=== PATIENT | male | born 1935 | race Caucasian/White ===

== ENCOUNTER 2019-08-15 16:39 | Inpatient (IN) | payer OTHER ==
[~2019-08-15] VITALS: Ht 172.7 cm; Wt 95.5 kg
[~2019-08-15 16:39] MED LIST: ALEVE220 M1 PO; ASPIRIN81 M2 PO; ATORVASTATIN CA40 MG PO; CARVEDILOL12.5 MG PO; FISH OIL300 MG PO; MSM1000 MG PO; MULTIVITAMINS1 EAC7 PO; POTABA500 M1 PO
[2019-08-15 16:40] VITALS: BP 143/76
[2019-08-15 17:04] LABS: ABSOLUTE NEUTROPHILS 4.3 thou/uL (1.4-8.2); BASOPHILS 0.9 % (0.0-2.0); EOSINOPHILS 4.4 % (0.0-3.0); HEMATOCRIT 37.8 % (42.0-52.0); HEMOGLOBIN 12.9 gm/dL (14.0-18.0); LYMPHOCYTES 29.1 % (24.0-44.0); MCH 33.2 pg (26.0-34.0); MCHC 34.1 g/dL (28.0-37.0); MCV 97.6 fL (80.0-100.0); MONOCYTES 6.8 % (1.0-8.0); PLATELET COUNT 194 thou/uL (150-400); POLYS 58.8 % (36.0-66.0); RBC 3.87 mil/uL (4.50-6.00); RDW 13.7 % (10.5-14.5); WBC 7.4 thou/uL (4.0-11.0)
[2019-08-15 17:07] LABS: CALCIUM 8.3 mg/dL (8.5-10.1); POTASSIUM 4.2 mmol/L (3.5-5.1)
[2019-08-15 17:17] LABS: ALBUMIN 2.8 g/dL (3.4-5.0); TOTAL BILIRUBIN 0.3 mg/dL (0.2-1.0); TOTAL PROTEIN 6.7 g/dL (6.4-8.2)
--- NOTE | 2019-08-15 17:20 | NUR ---
UNABLE TO INSERT CATHETER DO TO URETHRA OPENING VERY SMALL. ATTEMPTED WITH SMALLEST FEMALE STRAIGHT CATH WHICH WAS SUCCESSFULLY INSERTED BUT NOT LONG ENOUGH TO OBTAIN URINE RETURN.
[2019-08-15 23:29] VITALS: BP 178/85
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
[2019-08-16 06:28] LABS: ABSOLUTE NEUTROPHILS 4.9 thou/uL (1.4-8.2); BASOPHILS 0.5 % (0.0-2.0); HEMATOCRIT 38.2 % (42.0-52.0); HEMOGLOBIN 12.8 gm/dL (14.0-18.0); LYMPHOCYTES 26.5 % (24.0-44.0); MCH 32.9 pg (26.0-34.0); MCHC 33.5 g/dL (28.0-37.0); MCV 98.1 fL (80.0-100.0); MONOCYTES 7.1 % (1.0-8.0); PLATELET COUNT 174 thou/uL (150-400); POLYS 61.9 % (36.0-66.0); RDW 13.4 % (10.5-14.5)
[2019-08-16 06:48] LABS: ALBUMIN 2.8 g/dL (3.4-5.0); CALCIUM 8.4 mg/dL (8.5-10.1); CREATININE 0.9 mg/dL (0.7-1.3); POTASSIUM 3.4 mmol/L (3.5-5.1); TOTAL BILIRUBIN 0.4 mg/dL (0.2-1.0); TOTAL PROTEIN 6.5 g/dL (6.4-8.2)
[2019-08-16 07:30] VITALS: BP 157/91
--- NOTE | 2019-08-16 07:32 | EKG ---
[facility] [place] [address] ELECTROCARDIOGRAM REPORT Name: FANTA TERRELL Room #: [facility] ADM IN M.R.#: [id number] Admission: 08/15/19 Attend Phys: Kevin Aparicio DO Discharge: Date of : 33 Report #: [id number] THIS REPORT FOR: cc: Dread Hoyos MD, Dennis R MD Lundgren,Caesar Pérez MD [facility] ~ THIS REPORT FOR: //name// [facility] ED Test Date: 2019-08-15 Test Time: 17:01:42 Pat Name: FANTA TERRELL Department: Room: [facility] Gender: M Shop Estimator: BAM : 1935 Requested By: Sushant Randolph Order Number: [id number] MD: Caesar Gonzalez Measurements Intervals [place] Rate: 74 P: -9 VT: 209 QRS: -90 QRSD: 139 T: 30 QT: 426 QTc: 473 Interpretive Statements Sinus rhythm Ventricular premature complex RBBB and LAFB No previous ECG available for comparison Electronically Signed On 08-16-2019 7:31:34 CDT by Caesar Gonzalez [email or web address] <ELECTRONICALLY SIGNED> By: Caesar Gonzalez MD, FAC 08/16/19 0731 1701 170 Caesar Gonzalez MD, [facility] /EPI
[2019-08-16 09:15] LABS: TSH 4.022 uIU/mL (0.358-3.740)
--- NOTE | 2019-08-16 14:00 | NUR ---
ASSUMED CARE 0700. Combative for breakfast. Declined to eat. Very confused, oriented to person only. Knew who his daughter was when staff mentioned her name. Took meds in combination of whole and crushed with food. Given PRN IM x 1 to help calm him for straight cath. Had to be cathed/attempted x 2 then on third try urine specimen obtained and sent to lab.Med changes noted. Supply Analyst obtained permission for admission from daughter witnessed by Nurse Xiomara. Patient was combative, fighting, kicking, grabbing staff, using inappropriate language. Eventually he calmed down. At times he feeds himself, other times he leaves the silverware down. He has been incontinent x2, bladder drained about 50 cc with cath.
[2019-08-16 14:21] LABS: URINE BILIRUBIN NEGATIVE (Negative); URINE BLOOD TRACE (Negative); URINE CLARITY CLEAR; URINE COLOR YELLOW; URINE GLUCOSE-RANDOM* NEGATIVE (Negative); URINE KETONES NEGATIVE (Negative); URINE NITRITE-REFLEX NEGATIVE (Negative); URINE PROTEIN (DIPSTICK) NEGATIVE (Negative); URINE UROBILINOGEN 0.2 E.U./dl (0.2-1.0)
[2019-08-16 14:22] LABS: URINE LEUKOCYTES-REFLEX 1+ (Negative)
[2019-08-16 14:27] LABS: SQUAMOUS None Seen /LPF (0-3); URINE WBC-REFLEX 6-15 Few /HPF (0-5)
[2019-08-16 14:28] LABS: BACTERIA-REFLEX 1-9 Few /HPF (None Seen); CASTS None Seen /LPF (None Seen); CRYSTALS None Seen /LPF (None Seen); URINE RBC 0-2 Rare /HPF (0-2)
[2019-08-16 19:34] VITALS: BP 137/81
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
--- NOTE | 2019-08-17 09:23 | NUR ---
Assumed care on 08/16/19 @ 19:15. Yellow fall risk d/t falls that happened prior to hospital admission. Uses a walker to ambulate. HRRR, Lungs CTA, ABD N x 4 Q. [place] 7.5/325 provided for 7/10 back pain @ 20:30. follow up assessment noted to be sleeping. Meds provided crushed in pudding and whole in pudding. Cooperative behavior with cares. Unable to recount if had a bm d/t dementia and confusion. Bed in low position , bed alarm set, will continue to monitor q 12 minutes for patient safety.
--- NOTE | 2019-08-17 09:30 | NUR ---
Overnight the patient slept for a total of 9 hours in bed with the bed in low position, bed alarm set.
--- NOTE | 2019-08-17 09:32 | NUR ---
on 08/17/19 @ 06:15 staff x 2 cleaned and steri strip appplied to the skin tear on the left hand, pad applied and taped, coban wrapped to secure dressing and steri strip. .............................................. L Stephan RN
--- NOTE | 2019-08-17 11:58 | NUR ---
ROBIN contacted [facility] to discuss pt. No answer. SW left [facility] [place]. SW team will continue to follow pt during his stay on this unit.
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
[2019-08-17 16:43] VITALS: BP 139/89
--- NOTE | 2019-08-17 16:55 | NUR ---
PATIENT WAS UP SITTING IN GERICHAIR WHEN CARE ASSUMED. PATIENT IS ALERT, FORGETFUL, WITH PERIODS OF CONFUSION. PATIENT TOOK MORNING MEDICATION WHOLE WITHOUT DIFFICULTY. PATIENT CONSUMED 100% BREAKFAST, INCONTINENT CARE GIVEN PER 2-3 STAFF, NO AGGRESSION OR COMBATIVE BEHAVIOR TOWARD STAFF NOTED AT TIME OF CARE. HE WENT TO SLEEP SHORTLY AFTER INCONTINENT CARE. PATIENT WAS AWOKEN FOR LUNCH, HE CONSUMED ABOUT 75%, AND WENT RIGHT BACK TO SLEEP SHORTLY AFTER LUNCH. 1400HOURS DEPAKOTE/LAXIS HELD DUE TO PATIENT IS SEDETATED, NURSE PRCTITIONER (NUVIA GA) NOTIFIED. LUNGS DIMINISHED IN ALL LOBE PER AUSCULTATION, RESPIRATION EVEN/ UNLABORED, BS+X4, ABD ROUND, AND SOFT. PATIENT IS AWAKE AT THIS TIME, EATING SUPPER, NO SIGN OF ACUTE DISTRESS NOTED, WILL MONITOR FOR SAFETY.
[2019-08-17 19:36] VITALS: BP 107/70
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
--- NOTE | 2019-08-18 16:53 | NUR ---
DID SLEEP LATE THIS AM UNTIL APPROX 0900 WHEN APPROACHED IN ROOM WITH AM MEDICATIONS-WAS PLEASANTLY CONFUSED DURING AM MED PASS-ORIENTED TO NAME ONLY. GIDDY AFFECT AND MILDLY FLIRTATIOUS ATTEMPTING TO RUB NURSES BACK AND KISS HANDS-SINGING LOUDLY AND RECITING A LYMRIC. DID TAKE MEDICATIIONS AND ATE MOST OF BREAKFAST. DID USE URINAL X 2 -WAS INCONTINENT OF SMALL BM IN BRIEF. DID AMBULATE IN HALLWAY USING ROLLER WALKER WITH ASSIST OF 1-2 STAFF-AMBULATED LENGTH OF HALLWAY AND TOLERATED THIS ACTIVITY WELL. INITIALLY THIS AM REFUSED PAIN/DISCOMFRT. AT APPROX 1730 AFTER SITTING UP IN CHAIR REPORTS LOW BACK PAIN RATED A 9 ON 1-10 SCALE. NORCO 7/325 PO PRN WILL ONITR. REMAINS ON HIGH FALLS PRECAUTIONS.
--- NOTE | 2019-08-18 19:18 | NUR ---
Care of patient assumed at 1915. Patient is sitting in day room in recliner. Cooperative with assessment. Oriented to self only. ONEIDA - many repititions through interaction. Denies pain, SI, HI. Verballizes delusional thought processes. Insists there is a truck right outside the window. States he needs to urinate. Assisted to his room to toilet. Voids moderate amount. Then assisted to bed per patient request. Compliant with HS meds and goes to sleep shortly after.
[2019-08-18 20:16] VITALS: BP 102/56
[2019-08-19 08:21] VITALS: BP 135/67
[2019-08-19 11:23] VITALS: BP 123/84
--- NOTE | 2019-08-19 16:45 | NUR ---
1600 RESUMMED CARE FROM OVERNIGHT SHIFT THIS AM, PATIENT SITTING IN DAYROOM WAITING FOR BREAKFAST. PATIENT ATE BREAKFAST TOOK MEDICATION WITHOUT INCIDENCE. PATIENTS ABDOMEN SOFT ROUND BOWEL SOUNDS PRESENT LUNGS CLEAR. PATIENT DENIES SI/HI/AH/VH AT PRESENT PATIENT ORIENTED TO SELF QUIET CALM COOPERATIVE. PATIENT HAS A SKIN TEAR ON LT THUMB AREA COVERED WITH STERI STRIPS. PATIENT HAS NOT DISPLAYED ANY BEHAVIOR PROBLEMS WILL CONTINUE TO MONITOR PATIENT FOR SAFETY AND BEHAVIORS.
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
[2019-08-19 19:58] VITALS: BP 122/64
[2019-08-20 09:06] VITALS: BP 145/85
[2019-08-20 14:03] VITALS: BP 145/85
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
[2019-08-20 18:24] LABS: HEMATOCRIT 41.2 % (42.0-52.0); HEMOGLOBIN 13.8 gm/dL (14.0-18.0); MCHC 33.4 g/dL (28.0-37.0); MCV 98.8 fL (80.0-100.0); RBC 4.17 mil/uL (4.50-6.00); RDW 13.8 % (10.5-14.5); WBC 12.2 thou/uL (4.0-11.0)
[2019-08-20 18:31] LABS: CALCIUM 8.7 mg/dL (8.5-10.1); CREATININE 1.4 mg/dL (0.7-1.3)
[2019-08-20 20:06] VITALS: BP 121/59
[2019-08-20 22:00] VITALS: BP 121/59
--- NOTE | 2019-08-21 14:21 | NUR ---
INITIALLY THIS AM WAS COMBATIVE WITH STAFF ATTEMPTING TO GET HIM UP FOR BREAKFAST, INCONTINENT OF URINE ALL OVER ROOM AND FLOOR AND ATTEMPTING TO STAND UP WITHOUT ASSSIST IN URINE. DID CALM ONCE TAKEN TO DAYROOM BUT REFUSED MEDS UNTIL APPROX 0945 WHEN DID TAKE. REPORTS BACK PAIN RATED A 5 ON 1-10 SCALE-LIDODERM PATCH APPLIED PER ORDER. REMAINS HIGH FALLS RISK.
[2019-08-21 22:09] VITALS: BP 132/109
--- NOTE | 2019-08-22 06:41 | NUR ---
PT AWAKE INCONTINENT OF URINE ATTEMTED TO CHANGE BRIEF PT VERY AGITATED AND COMBATIVE , ZYPEXA IM GIVEN AT THIS TIME. CHEL CARE GIVEN AND KEPT IN BED WITH BED ALARM ON UNITL PT ABLE TO CALM DOWN .
--- NOTE | 2019-08-22 10:49 | NUR ---
RT Progress Note- Pasquale is minimally active in both the milieu and group activities. His low cognition limits his ability to follow along as well as Pasquale's sleeping habits throughout the day. RT Staff visit Pasquale 1;1 and Pasquale interacts very little.
[2019-08-22 11:35] VITALS: BP 155/91
--- NOTE | 2019-08-22 13:04 | NUR ---
ROBIN faxed updates to [facility] for pt. ROBIN team will continue to follow pt during his stay on this unit.
[2019-08-22 19:25] VITALS: BP 130/99
--- NOTE | 2019-08-22 22:06 | NUR ---
PT ASLEEP UPON ARRIVAL TO SHIFT. PT AROUSED WITH TOUCH, PT DID TALK AND TAKE MEDS WITH HIS EYES CLOSED. PT C/O LOWER BACK PAIN AND PRN PROVIDED. PT ALSO CALLED OUT BECAUSE HE NEEDED TO URINATE AND STATED HE WAS NOT GOING TO BE ABLE TO WAIT. PT WAS INCONTINENT BUT ALSO USED THE URINAL WHEN HELD BY STAFF. PT WAS NOT COMBATIVE WITH ADL CARE THIS EVENING. PT HAS BLE EDEMA, PALE SKIN TONE. BED ALARM ON. PT DECLINED HS SNACK.
--- NOTE | 2019-08-23 04:01 | NUR ---
PT INCONTINENT AND WAS COMBATIVE HITTING KICKING DURING LINEN AND ADL CARES. PT NOT ABLE TO BE VERBALLY REDIRECTED. PT YELLING OUT DAMN WOMEN NEED TO LEAVE HIM ALONE.
[2019-08-23 09:23] VITALS: BP 156/105
--- NOTE | 2019-08-23 16:49 | NUR ---
PT ALERT TO SELF ONLY. VSS. PT DENIES ANY SI/HI. PT HAD SOME SMALL OUTBURST THIS SHIFT. NO PRN MEDICTIONS NEEDED. PT TOLERATES MEDS AND MEALS. PT IN DAYROOM FOR MOST OF THE SHIFT. PT IN GROUP BUT DID NOT PARTICIPATE. PT HAS LITTLE INTERACTIONS WITH PEERS. WILL CONTINUE TO MONITOR.
[2019-08-23 20:02] VITALS: BP 118/59
--- NOTE | 2019-08-24 06:31 | NUR ---
Assumed care on 08/23/19 @ 19:15. Required a prn of olanzapine IM 7.5mg @ 19:15. X2 staff, x3 security assistance. Transferred to bed after about 30 minutes. Slept well overnight 7.4 hours.
--- NOTE | 2019-08-24 12:35 | NUR ---
Sitting in WC without s/o distress. Calm and compliant, took meds whole with sips of H2O. Orientated to self only, some confused speech, some coherent.
[2019-08-24 16:25] VITALS: BP 130/83
[2019-08-24 18:35] VITALS: BP 130/83
[2019-08-24 19:23] VITALS: BP 126/88
--- NOTE | 2019-08-25 04:35 | NUR ---
Assumed care on 08/24/19 @ 19:15, seated in the day room in a kait chair, anterior applied lap belt noted. High fall risk with yellow T-Shirt on. PRN [place] provided for 8/10 back pain. Follow up noted to be drowsy in kait chair. Meds provided whole in ice cream. Oriented to self only. Noted to have purposeful hand motions with eyes closed. Transferred from kait chair to bed with x2 staff and x2 security personnel assisting. Patient does not bear own weight. Incontinent of bladder, incontinent care provided. Bed in low position, bed alarm set.
[2019-08-25 07:55] VITALS: BP 92/53
--- NOTE | 2019-08-25 09:00 | NUR ---
Assumed care 0700-somnolent, did not eat breakfast. Seen briefly by Dr. Loredo who could not wake him up.
--- NOTE | 2019-08-25 12:30 | NUR ---
Pt. was awakened for AM meds, returned to sleep after spraying urine on the floor with small amount 100 cc caught in urinal. Commode brought in and pt. went to sleep. He is not answering assessment questions-returns to sleep.
[2019-08-25 14:26] LABS: HEMATOCRIT 36.9 % (42.0-52.0); HEMOGLOBIN 12.5 gm/dL (14.0-18.0); MCH 33.2 pg (26.0-34.0); MCHC 33.8 g/dL (28.0-37.0); MCV 98.2 fL (80.0-100.0); RBC 3.75 mil/uL (4.50-6.00); RDW 13.6 % (10.5-14.5); WBC 10.8 thou/uL (4.0-11.0)
[2019-08-25 14:46] LABS: CREATININE 1.3 mg/dL (0.7-1.3); MAGNESIUM 2.3 mg/dL (1.8-2.4)
--- NOTE | 2019-08-25 17:30 | NUR ---
Combative, agitated when getting patient up for dinner. Assisted with feeding him dinner. He voided large amount on the floor. AV=137/80, p=80 at 1720. Cooperative with eating. Somnolent majority of the dayshift.
--- NOTE | 2019-08-26 04:23 | NUR ---
Pt calm et cooperative with pleasant demeanor this shift. Took medications crushed without difficulty. Ambulates via assistance of kait-chair. VSWNL. Health assessment with no abnormalities noted. Unable to assess SI/HI due to pt's comprehension deficit. Pt displays no signs or symptoms of emotional distress at present time. Pt sat in dayroom watching TV off et on until HS. Pt did not socialize with peers. Currently resting in bed with eyes closed. Will continue to monitor per protocol.
[2019-08-26 06:13] LABS: HEMATOCRIT 38.6 % (42.0-52.0); HEMOGLOBIN 13.1 gm/dL (14.0-18.0); MCH 33.3 pg (26.0-34.0); MCHC 33.9 g/dL (28.0-37.0); MCV 98.3 fL (80.0-100.0); RBC 3.93 mil/uL (4.50-6.00); RDW 13.5 % (10.5-14.5); WBC 10.7 thou/uL (4.0-11.0)
[2019-08-26 06:38] LABS: CALCIUM 8.6 mg/dL (8.5-10.1); CREATININE 1.2 mg/dL (0.7-1.3); MAGNESIUM 2.5 mg/dL (1.8-2.4); POTASSIUM 3.8 mmol/L (3.5-5.1)
[2019-08-26 07:53] VITALS: BP 119/61
[2019-08-26 15:45] VITALS: BP 119/61
[2019-08-26 19:35] VITALS: BP 119/54
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
--- NOTE | 2019-08-27 03:55 | NUR ---
Assumed care of pt @ 2300. Pt calm et cooperative. COVID-19 swab collected by 3rd floor nurse et sent to lab for analysis. Pt currently in bed resting with eyes closed. VSWNL. Health assessment with no abnormalities noted. Unable to assess SI/HI due to pt's deficit in ability to communicate clearly. Pt does not demonstrate any acute signs or symptoms of emotional distress at present time. Will continue to monitor per protocol.
[2019-08-27 09:01] VITALS: BP 136/89
[2019-08-27 14:50] VITALS: BP 136/89
--- NOTE | 2019-08-27 14:54 | NUR ---
Faxed updates to [facility]
--- NOTE | 2019-08-27 19:22 | NUR ---
PATIENT HAS BEEN IN BRANDON CHAIR MOST OF THE DAY. COMPLIANT WITH MEDICATIONS CRUSHED IN YOGURT. ALERT TO SELF - PLEASANT UNTIL CARES NEEDED AND BECOMES COMBATIVE AND HOSTILE WITH STAFF ATTEMPTING TO CHANGE OR TRANSFER OR MANUVER AROUND. GOOD APPETITE BUT NEEDS TO BE FED - WEIGHT BEARING FOR VERY SHORT TIME WHEN TRANSFERRING PATIENT. STILL REACHES FOR UNSEEN OBJECTS IN THE AIR AND MOTIONS TO GRAB THINGS. INCONTINENT OF BOTH BLADDER AND BOWEL.
[2019-08-27 19:58] VITALS: BP 100/79
--- NOTE | 2019-08-27 21:20 | NUR ---
Care assumed of patient at 1915: Patient seated in recliner in dayroom at start of shift. Patient drowsy. Alert and oriented to name only. Speech garbled at times. Answers yes/no questions appropriately at times. Speech disorganized at times, having some difficulty focusing. Patient denies pain or discomfort. No s/s of pain or discomfort observed. Patient denies anxiety and depression. Unknown if patient truly understands questions asked. Patient calm, pleasant and cooperative at times. Patient becomes agitated and attempts to swing arms at staff when parker care is provided. Patient easier to re-direct than a couple nights ago. Patient ate 100% HS snack of yogurt with total assist by nurse. Patient took medications crushed except for Colace. Patient was able to fall asleep while sitting in recliner in dayroom. Sleeping quietly at this time.
[2019-08-28 07:45] VITALS: BP 111/75
[2019-08-28 08:20] VITALS: BP 111/75
--- NOTE | 2019-08-28 09:02 | NUR ---
PT SLEEPY THIS AM. PT WAS ABLE TO TAKE MEDS IN YOGART. PT NEEDS ASSIST TO EAT. PT HAS SCAB TO LEFT HAND THAT IS HEALING. PT INCON. OF URINE OR STOOL. PT NOT COMBATIVE AT THIS TIME WITH GIVING MEDS.
--- NOTE | 2019-08-28 09:16 | NUR ---
ADM HYDROCODONE 7.5MG PO CRUSHED FOR PAIN TO LOWER BACK, PT MOANING AND NOT POSITIONED COMFORTABLE IN CHAIR. GOT ASSISTANCE WITH PULLING HIM UP IN CHAIR.
--- NOTE | 2019-08-28 14:42 | NUR ---
RT Progress Note- Pasquale is minimally engaged in both the milieu and group activities d/t his cognition. He has been present and passively engaged during various music groups but does not socialize or interact.
--- NOTE | 2019-08-28 17:37 | NUR ---
PT HAS BEEN SLEEPING IN RECLINER MOST OF DAY. PT DID TAKE MEDS IN ICE CREAM OR YOGART CRUSHED. PT NOT WAKING UP FOR COREG, DR. GO AWARE. PT BP 128/83, PULSE 81.
[2019-08-28 22:10] VITALS: BP 128/83
--- NOTE | 2019-08-28 23:41 | NUR ---
PATIENT HAS BEEN IN BED AND SLEEPING OFF AND ON SINCE 190. WHEN AWAKE, PATIENT WAS ABLE TO CONVERSE WITH THIS NURSE IN A CALM AND PLEASANT MANNER. HE SAID HIS BACK WAS HURTING AND NOTED IT AT A 7/10 AROUND 2100. PATIENT WAS REPOSITIONED AND GIVEN HYDROCODONE PRN PO CRUSHED IN YOGURT. PATIENT IS RESTING/SLEEPING COMFORTABLY AT THIS TIME. BED IN LOW POSITION AND BED ALARM IS ON. PATIENT A/0X1. HE HAS NOT BEEN COMBATIVE SO FAR THIS EVENING WITH CARES. PATIENT IS INCONTINENT AND BRIEFS CHANGED NEEDED. CONTINUED ROUNDING TO ASSESS PT FOR STATUS AND SAFETY. DENIES SI/HI/AVH.
[2019-08-29 09:29] VITALS: BP 154/81
--- NOTE | 2019-08-29 10:48 | NUR ---
Lying in recliner without s/o distress. Alert to name only, sleeping when not disturbed. Slightly combative when turned but calmed down immediately. Occassional confused speech. Required help with eating but did take medications whole. Denies SI/HI. Breath sounds clear t/o. Reg HR auscultated. Color pale pink with brisk capillary refill and palpable peripheral pulses. Brief dry. Active bowel sounds over rounded abdomen. Area between buttocks reddened with bruise. Cleaned and Zpaste ointment applied. Diet changed to mechanically altered.
--- NOTE | 2019-08-29 13:39 | NUR ---
ROBIN faxed updates to [facility] Mcclellan. ROBIN contacted [facility] and spoke to Stella who said she received pt's updates. She said the DON is not in today, but she will review pt's notes and take the documentation to her senior windows systems administrator. She will then call ROBIN back. ROBIN team will continue to follow pt during his stay on this unit.
[2019-08-29 17:00] VITALS: BP 120/63
[2019-08-29 19:32] VITALS: BP 127/69
[2019-08-29 19:43] VITALS: BP 98/49
--- NOTE | 2019-08-30 03:38 | NUR ---
Pt as asleep in his bed at time of assessment. Pt was albe to wake up with no issues. No aggression noted. Fall precaution in place. Pt took meds crushed in applesauce. Pt have had 2 BM's this shift. Pt showed minimal resistance in getting cleaned up. Pt currently in bed sleeping. Will continue to monitor.
[2019-08-30 09:03] VITALS: BP 156/90
--- NOTE | 2019-08-30 09:41 | NUR ---
Yesterday, ROBIN received a call back from Stella asking ROBIN to push D/C off until Wednesday, as they do not currently have room for him but will Wednesday. ROBIN told Stella she will discuss this matter in tx team this morning.
[2019-08-30 13:04] VITALS: BP 156/90
--- NOTE | 2019-08-30 16:20 | NUR ---
PATIENT WAS IN BED WHEN CARE ASSUMED, ASSISTED UP BY STAFF TO DAYROOM FOR BREAKFAST. PATIENT REQUIRES SSIST OF 2-3 STAFF TO TRANSFER, TURN, AND TO COMPLETE ADL. PATIENT REQUIRES ASSIST OF STAFF TO FEED, EATING 100% MEALS. INCONTINENT CARE PROVIDED PER STAFF. PATIENT TOOK FREQUENT LONG NAPS. PATIENT IS FORGETFUL, CONFUSED, MUMBLES AT TIMES. PATIENT DENIES SUICIDAL/HOMICIDAL IDEATION. PATIENT NOT ABLE TO APPROPRIATELY RESPOND TO FURTHER ASSESSMENT QUESTIONS DUE TO COGNITIVE IMPAIRMENT. PATIENT WAS YELLING OUT DUE TO GENERALIZED PAIN OF 5/10, PRN TYLENOL 650MG GIVEN, WITH POSITIVE EFFECT. NO SIGN OF ACUTE DISTRESS NOTED AT THIS TIME, WILL MONITOR FOR SAFETY.
[2019-08-30 19:10] VITALS: BP 134/82
[2019-08-30 22:00] VITALS: BP 134/82
--- NOTE | 2019-08-31 01:32 | NUR ---
Assumed care of patient this pm shift. Patient in good spirits resting in his bed. Patient had a very large brown loose stool this evening. Patients affect is blunted. Patient takes medications crushed in yogurt. Patient denies pain. Patient denies si. Patient gets very agitated with cares and can be somewhat aggressive. Patient ambulates via wheelchair. Patient is a falls risk and has a yellow shirt and yellow slippers on. Patients assessment shows no signs of acute distress. Patient is alert and oriented to self only. We will continue to monitor patient per hospital protocol.
[2019-08-31 07:30] VITALS: BP 155/89
[2019-08-31 17:20] VITALS: BP 130/64
--- NOTE | 2019-08-31 19:41 | NUR ---
Lying in recliner most of day. Alert to name only, denies SI/HI. Occassionally makes some short coherent statements but mostly has confused speech. Becomes resistant with cares but calms down with reassurance. Took meds crushed in applesauce, some whole that couldn't be crushed. Requires feeding for PO intake. Ate approximately 50% of meals with good fluid intake. Breath sounds clear t/o. Reg HR auscultated. Color pale pink with brisk capillary refill and palpable peripheral pulses. Feet slightly cool to touch. Incontinentl of large amt pale yellow urine per brief. Active bowel sounds over soft, rounded abdomen. Smear of brown stool per brief. Area above anus erythamatous with ulcer and bruising. Photographed, cleaned with NS and optiform drsg applied. Dr. Magallon told on rounds about wound and he stated he would order wound consult. Two person transfer from recliner to bed and back. Currently in bed, placed on R side.
[2019-08-31 20:11] VITALS: BP 148/86
--- NOTE | 2019-09-01 05:24 | NUR ---
08-31-19 CARE TRANSFERED 1914 PT SUPINE IN BED RESTING WITH EYES CLOSED. 1950 PT AAOX1, SKIN W/D, PT SUPINE IN BED WITH EYES CLOSED. PT DENIES ANY PAIN OR SI/SH/HI/VAH. PT HAD ZERO DIFFICULTIES DURING MEDICATION ADMIN. DURING NURSING ROUNDS ZERO ACUTE EMOTIONAL OR MEDICAL DISTRES NOTED. WILL CONTINUE TO MONITOR PER [facility] PROTOCOL.
[2019-09-01 09:07] VITALS: BP 115/80
--- NOTE | 2019-09-01 10:48 | NUR ---
ROBIN faxed updates to Venkatesh. ROBIN team will continue to follow pt during his stay on this unit.
--- NOTE | 2019-09-01 11:24 | NUR ---
WOUND CARE CONSULT; ASSESS WOUND W/ RESTAURANT HOURLY MANAGER JAMES, STAGE 2 PRESSURE INJURY COCCYX, PT COMBATIVE BUT ALLOWED WOUND CARE TO BE PERFORMED, INCONT URINE, SCANT DRAINAGE, NO S/S INFECTION, DISCUSSED CARE W/ RESTAURANT HOURLY MANAGER LARRY ALSO, SITE CLEANSED W/NS AND Z GUARD APPLIED, SEE PROCESS INTERVENTION FOR WOUND DETAILS RECOMMENDATIONS ZGUARD BID TO SACRAL AREA AND PRN AFTER Q INCONT EPISODE, DO NOT LET PT SIT LONGER THAN 2 HOUR PERIODS, WAFFLE SEAT CUSHION, TURN Q 2HOURS WHEN IN BED, PRESSURE RELIEF, OFF LOADING RESTAURANT HOURLY MANAGER AWARE
[2019-09-01 17:00] VITALS: BP 142/79
[2019-09-01 19:31] VITALS: BP 100/76
--- NOTE | 2019-09-01 19:31 | NUR ---
patient is confused and most of the day in bed sleeping. seen by wound care and z-guard to wound and open to air. not up to chair greater than 2 hours and use pad when in chair. patient is combative if he is startled. patient unable to communicate meaningfully. patient takes meds in applesauce.
--- NOTE | 2019-09-02 04:15 | NUR ---
Assumed care of pt @ 1900. Pt calm et cooperative this shift. Pt took medications crushed in yogurt without difficulty. Pt ambulates the unit via assistance of kait-chair. Pt currently has wound on buttocks et cannot spend longer than two hours sitting. Pt transferred from kait-chair to bed without difficulty. Pt stood with assistance et pivoted into bed. VSWNL. Health assessment with no abnormalities other than previously noted. Unable to assess SI/HI due to cognitive deficit but pt does not appear to be in any emotional distress at present time. Currently resting in bed with eyes closed. Will continue to monitor per protocol.
[2019-09-02 08:00] VITALS: BP 164/85
--- NOTE | 2019-09-02 09:30 | NUR ---
PT RESTING IN BED WITH EYES CLOSED. PT LUNGS CLEAR. PT NOT ABLE TO WAKE UP AT THIS TIME TO TAKE MEDS IN YOGART. MEDS ARE CRUSHED. LET DR. GO KNOW ABOUT WHAT MEDS WE CANNOT CRUSH.
--- NOTE | 2019-09-02 12:44 | NUR ---
PT DID GET TO EAT LUNCH WITH ASSIST. PT KEEPS TAKING TOP TEETH OUT, PT UNABLE TO EAT CHICKEN SERVED. PT DID EAT SOME ENSURE PUDDING AND X2 YOGART. PT TOOK MEDS AT THIS TIME. PT CHANGED AND Z CREAM APPLIED TO BUTTOCKS CRACK. PT HAS OPEN AREA BETWEEN BUTTOCKS. PT DIDN'T SHOW ANY AGGRESSION WHEN TURNING TO CHANGE. LEFT BRIEF OFF AT THIS TIME.
[2019-09-02 13:36] VITALS: BP 164/85
--- NOTE | 2019-09-02 16:36 | NUR ---
PT STILL RESTING AT THIS TIME. PT ALLOWED LAB DRAW TODAY. PT DID TAKE MEDS AFTER NOON WITH LUNCH.
--- NOTE | 2019-09-02 18:38 | NUR ---
PT DID TAKE COREG WITH ICE CREAM. PT IS WAKING UP. THIS MAMMA LOGIST ASKED IF HE KNEW IT WAS August, PT STATED HE DIDN'T KNOW. KEPT PT OUT OF DIAPER WHILE IN BED.
[2019-09-02 19:25] VITALS: BP 128/83
--- NOTE | 2019-09-02 22:37 | NUR ---
Care of patient assumed at 1915: Patient sleeping in bed at start of shift. Easily aroused. Calm, pleasant and cooperative. A bit drowsy but able to stay awake for assessment and take HS medication. Patient alert and oriented to person only. Confused and forgetful. Patient denies anxiety and depression. Denies SI/HI/AH/VH. Unknown if patient understands these questions asked. No s/s of delusional or paranoia behaviors. No agitation or aggression shown at this time. Patient took HS medication crushed without difficulty. Ate 100% HS snack of applesauce, being fed by nurse. Patient has been checked and changed q2 hours and turned to relieve pressure from buttock. Z-guard applied to coccyx. Patient denies pain and discomfort. No s/s of pain observed. Patient sleeping quietly in bed at this time.
--- NOTE | 2019-09-03 07:17 | NUR ---
COVID 19 swab collected. Left nasopharangeal. Patient tolerated well. Swab delivered to lab this AM.
[2019-09-03 08:52] VITALS: BP 128/68
[2019-09-03 10:10] VITALS: BP 128/63
--- NOTE | 2019-09-03 11:42 | NUR ---
RESUMMED CARE FROM OVERNIGHT SHIFT THIS AM, PATIENT LYING IN BED ASLEEP. PATIENT WAS FEED BREAKFAST MEDS CRUSHED AND OUT IN YOGART, PATIENTS ABDOMEN SOFT ROUND BOWEL SOUNDS PRESENT. PATIENTS LUNGS CLEAR PATIENT UNABLE TO STATE SI/HI/AH/VH AT PRESENT DUE TO COGNITIVE BRAIN PROBLEMS. PATIENT HAS COCCYX SMALL WOUND JASSI AND ANA MARÍA APPLIED WOUND NURSE WANTS WOUND TO HAVE AIR. WILL CONTINUE TO MONITOR PATIENT FOR SAFETY AND BEHAVIORS PATIENT IS SUPPOSE TO DC TOMMOROW TO NEXT LEVEL OF CARE.
[2019-09-03 19:27] VITALS: BP 112/60
[2019-09-03 21:51] VITALS: BP 112/60
--- NOTE | 2019-09-04 01:45 | NUR ---
PATIENT HAS BEEN SLEEPING IN BED THIS SHIFT. HE HAS BEEN TURNED SIDE TO SIDE FOR COMFORT NEEDED BUT KEEPS ROLLING BACK TO HIS BACK. INCONTINENCE CARES HAVE BEEN DONE NEEDED. BARRIER CREAM APPLIED TO DENUDED AREA AT COCCYX CRACK WITH INCONTINENCE CHANGES. BRIEFS OFF TO LEAVE OPEN TO AIR. PATIENT DENIES PAIN. HE HAS TAKEN HIS HS MEDS CRUSHED IN YOGURT WITHOUT DIFFICULTY. PATIENT IS ASSIST X 2 WITH CARES DUE TO HIS SIZE. BED IN LOW POSITION AND BED ALARM IS ON. ROUTINE ROUNDS TO CHECK ON PATIENT STATUS AND SAFETY.
[2019-09-04 07:51] VITALS: BP 124/72
[2019-09-04 08:58] VITALS: BP 124/72
--- NOTE | 2019-09-04 09:30 | NUR ---
WOUND CARE F/U; ASSESSED COCCYX WOUND AND SACRAL AREA W/ SCIENCE EDUCATION PROFESSOR VAISHALI, AREA GREATLY IMPROVED, NO S/S INFECTION, NO ODOR, HEALING, COOPERATIVE THIS AM, ZGUARD APPLIED, ENCOURAGED TO NOT SIT LONGER THAN 2 HOUR PERIODS, WAFFLE SEAT CUSHION, SEE PROCESS INTERVENTION FOR WOUND DETAILS RECOMMENDATIONS; CONT CURRENT POC, ZGUARD BID AND PRN CELESTE AFTER Q INCONT EPISODE, WAFFLE SEAT CUSHION, DO NOT SIT LONGER THAN 2 HOURS, TURN Q2 HOURS WHEN IN BED, PRESSURE RELIEF, OFF LOADING SCIENCE EDUCATION PROFESSOR AWARE
--- NOTE | 2019-09-04 12:27 | NUR ---
SW reviewed pt's chart and COVID-19 test ordered 09/01 was negative. SW contacted [facility] and provided an update.
[2019-09-04] MEDS ORDERED: CARVEDILOL25 MG PO (12:31)
[2019-09-04] MEDS ORDERED: VOLTAREN GEL 1100 G2 TOP (12:33)
[2019-09-04] MEDS ORDERED: DEPAKOTE SPRIN125 MG PO (12:37)
[2019-09-04] MEDS ORDERED: POTASSIUM CHLO20 MEQ PO (12:39)
[2019-09-04] MEDS ORDERED: LASIX 20 MG TAB20 MG PO (12:40)
[2019-09-04] MEDS ORDERED: COLACE 100 MG100 MG PO (12:41)
[2019-09-04] MEDS ORDERED: NYSTATIN1 EAC2 PO (12:44)
--- NOTE | 2019-09-04 13:42 | NUR ---
Nutrition update: Pt was due for follow up this date. Note pt is discharging today. Latest notes indicate pt may soon also be nearing end of life.
--- NOTE | 2019-09-04 14:32 | NUR ---
REPORT CALLED TO [facility] FOR PENDING DC THIS PM. BEDBATH PERINEAL,ORAL AND WOUND CARE PROVIDED IN ADDITION TO SHAVE. TONGUE IS NOTED TO BE COATED WITH WHITE,CRUSTY-LIKE MATTER WHICH DOES NOT COME OFF WITH SCRUBBING OR TOOTHETTE. MD ALERTED AND ASSESSED MOUTH LESIONS-RX WRITTEN FOR [facility] SENT WITH PACKET FOR NURSING FACILITY. PT DC'D WITH PERSONAL BELONGINGS INCLUDING DENTURES,GLASSES AND WATCH SECURED IN FACILITY. OMULENT BUT ROUSABLE TO VERBAL STIMULI AT TIME OF DC-DENIES SI/SH/HI- DENIES C/O PAIN/DISCOMFORT AT TIME OF DC-DC'D VIA [facility] ACCOMPNIED BY TWO NURSING STAFF TO [facility] TRANSPORT [place]. BED
--- NOTE | 2019-09-04 14:52 | NUR ---
ROBIN D/C Note ROBIN faxed to Dung Mcclellan a copy of pt's discharge docs and labs. ROBIN will file this in pt's hospital file. No other needs for SW team to address at this time.
== END 2019-09-04 14:46 | DRG 57 ==
LOC: ER 16:39 → SBH 21:33 → EROBS 21:33 → SBH 21:33
PROVIDERS: Emergency Medicine; Hospitalist; Internal Medicine; Nurse Practitioner Family; ADMIT Psychiatry & Neurology Psychiatry; ATTEND Psychiatry & Neurology Psychiatry
DX: G30.9 Alzheimer's disease, unspecified (principal); F01.51 Vascular dementia, unspecified severity, with behavioral disturbance; I11.0 Hypertensive heart disease with heart failure; F02.81 Dementia in other diseases classified elsewhere, unspecified severity, with behavioral disturbance; E44.0 Moderate protein-calorie malnutrition; N39.0 Urinary tract infection, site not specified; E78.00 Pure hypercholesterolemia, unspecified; I50.9 Heart failure, unspecified; J44.9 Chronic obstructive pulmonary disease, unspecified; E78.5 Hyperlipidemia, unspecified; I48.0 Paroxysmal atrial fibrillation; F41.9 Anxiety disorder, unspecified; E87.6 Hypokalemia; B96.1 Klebsiella pneumoniae [K. pneumoniae] as the cause of diseases classified elsewhere; Z95.5 Presence of coronary angioplasty implant and graft; Z98.42 Cataract extraction status, left eye; Z98.41 Cataract extraction status, right eye; Z79.82 Long term (current) use of aspirin; Z79.899 Other long term (current) drug therapy; Z68.32 Body mass index [BMI] 32.0-32.9, adult; Z03.818 Encounter for observation for suspected exposure to other biological agents ruled out
CPT/HCPCS: 10880